=== PATIENT | male | born 1995 | race Caucasian/White ===

== ENCOUNTER 2016-08-15 12:35 | Emergency (ER) | payer BC ==
[~2016-08-15] VITALS: Ht 177.8 cm; Wt 83.7 kg
[~2016-08-15 12:35] MED LIST: MELA5CAP PO
[2016-08-15 12:39] VITALS: TEMP 36.6; Ht 177.8 cm; Wt 83.7 kg
[2016-08-15] MEDS ORDERED: LEVO5TAB2 PO (12:47)
[2016-08-15] MEDS ORDERED: OXYMETAZOLINE HCL 0.05% NA SPR 15 ML BTL ONE (14:00)
--- NOTE | 2016-08-15 14:03 | EMERGENCY ROOM VISIT NOTE ---
ED Visit Note First contact with patient: 13:26 CHIEF COMPLAINT: Recurrent epistaxis HISTORY OF PRESENT ILLNESS: This 20-year-old male patient presents to the emergency department ambulatory for intermittent epistaxis. The patient reports a history of seasonal allergies. He had been taking Flonase up until last week. He patient has intermittent epistaxis. He reports postnasal drip causing a cough. He denies any fevers, sinus pain or pressure. He denies any significant headache. He denies any neck pain or neck stiffness. He denies any injury. REVIEW OF SYSTEMS: A 10 system review of systems was completed with positives and pertinent negatives listed in the HPI. ALLERGIES: Penicillin MEDICATIONS: Allergy medication PMH: Seasonal allergies. SOCIAL HISTORY: The patient is a student. PHYSICAL EXAM: Vital Signs: Reviewed Nurse's notes, Vital signs stable. GENERAL : This is a 20-year-old male, in no acute distress, well-developed, well- nourished. EYES: PERRLA, EOMs full, no discharge or injection. NOSE: The bridge of the nose is not swollen or tender and the skin is intact. There is irritation to the septum. There is no active bleeding. There is no obvious area that has been bleeding. FACE: No sinus tenderness. NECK: Supple, cervical spine is nontender, no lymphadenopathy. HEAD: Atraumatic, without temporal or scalp tenderness. NEUROLOGICAL: The patient is alert and oriented to person place and time. Sensory and motor functions grossly intact, normal gait, cooperative and appropriate. EMERGENCY DEPARTMENT COURSE: I examined the patient. The patient has had intermittent epistaxis. He has been on Flonase. He does have seasonal allergies and postnasal drip. The patient was given Afrin and a nasal clamp to use if the bleeding recurs. He was advised to try Vaseline to keep the nasal passages moist. He should follow up with otolaryngology if his symptoms continue to recur for further evaluation and management. He should return with any worsening symptoms. Problem List Medical Problems: (1) Arrhythmia Status: Chronic Surgical Problems: (1) H/O wisdom tooth extraction Status: Resolved Current/Historical Medications Scheduled Levocetirizine Dihydrochloride (Xyzal), 5 MG PO DAILY Allergies Coded Allergies: Penicillins (Verified Allergy, Unknown, RASH, 08/15/16) Vital Signs Date Time Temp Pulse Resp B/P Pulse Ox O2 Delivery O2 Flow Rate FiO2 08/15/16 14:08 80 16 147/78 97 Room Air 08/15/16 12:39 36.6 81 18 176/77 97 Room Air Medications Administered Medications (Trade) Dose Ordered Sig/Josselyn Route Start Time Stop Time Status Last Admin Dose Admin Oxymetazoline HCl (Afrin 0.05% Nasal [place]) 1 sprays NOW ONCE NA 08/15/16 14:00 08/15/16 14:01 DC 08/15/16 14:05 1 SPRAYS Departure Information Impression Primary Impression: Epistaxis Dispostion Home / Self-Care Condition GOOD Referrals [facility] (PCP) Edy Anna D.O. Patient Instructions My [facility] Additional Instructions [place] 2-3 sprays in your nostril if the bleeding begins again. Then, apply a nasal clamp to the lower part of your nose and leave on 15-20 minutes. If the bleeding continues after this, return to the emergency department. Do not use more than 6 sprays in 24 hours. Do not use the Afrin for more than 3 days in a row. Use vasoline especially at night to help moisturize the nasal passages. Run a cool mist vaporizer in your room at night to help moisturize the air and prevent dryness to the nose. Return with any worsening bleeding or bleeding you cannot stop. Otherwise, follow up with an ENT doctor or your family doctor for recheck.
[2016-08-15 14:08] VITALS: BP 147/78; PULSE 80; O2SAT 97
== END 2016-08-15 14:09 | disposition home or self-care (01) ==
LOC: C.EDB 12:36 → C.EDD 14:09
DX: R04.0 Epistaxis (principal); I49.9 Cardiac arrhythmia, unspecified; Z79.899 Other long term (current) drug therapy